=== PATIENT | female | born 1955 | race Caucasian/White ===

== ENCOUNTER 2017-06-24 15:01 | Emergency (ER) | payer OTHER, MEDICAID ==
[~2017-06-24] VITALS: Ht 162.6 cm; Wt 51.3 kg
[~2017-06-24 15:01] MED LIST: ATEN-60; CEFP200T15 PO; GLAT20KI IM; WARF5TAB71 PO
[2017-06-24 15:06] VITALS: BP 153/77
[2017-06-24] MEDS ORDERED: MORPHINE SULF INJ 2 MG/ML SYRINGE 1ML ONE (17:44)
[2017-06-24] MEDS ORDERED: ONDANSETRON ODT 4 MG TAB PO ONE (17:45)
[2017-06-24] MEDS ORDERED: MORPHINE SULFATE 4 MG/ML SYR/VIAL IM ONE (17:45)
== END 2017-06-24 19:06 | disposition home or self-care (01) ==
LOC: EDBD 15:01 → ER 15:10
DX: M25.551 Pain in right hip (principal); I10 Essential (primary) hypertension; F17.200 Nicotine dependence, unspecified, uncomplicated; Z79.01 Long term (current) use of anticoagulants; Z90.710 Acquired absence of both cervix and uterus
CPT/HCPCS: 73502; 96372; 99284; J2270; Q0162

== ENCOUNTER 2017-09-26 20:40 | Emergency (ER) | payer OTHER, MEDICAID ==
[~2017-09-26] VITALS: Ht 167.6 cm; Wt 64.4 kg
[2017-09-26] MEDS: ACETAMINOPHEN 325 MG TAB PO ONE ×2 (21:11→21:15)
[2017-09-26 21:54] LABS: Basophils # (auto) 0.1 uL; Basophils % (auto) 0.6 % (0.0-2.0); Eosinophils # (auto) 0.1 uL; Eosinophils % (auto) 0.7 % (0.0-7.0); Hematocrit 37.8 % (36.0-46.0); Hemoglobin 12.5 g/dL (12.2-16.2); Lymphocytes # (auto) 0.7 uL; Lymphocytes % (auto) 5.2 % (10.0-50.0); Mean Corpuscular Hemoglobin 28.2 pg (28.0-32.0); Mean Corpuscular Hgb Conc. 33.1 g/dL (32.0-36.0); Mean Corpuscular Volume 85.1 fL (80.0-100.0); Monocytes % (auto) 6.9 % (0.0-12.0); Neutrophils # (auto) 12.1 uL; Neutrophils % (auto) 86.6 % (37.0-80.0); Platelet Count (auto) 290 10^3/uL (140-450); Red Blood Cells 4.45 10^6/uL (4.0-5.20); Red Cell Distribution Width 15.1 % (11.8-14.3); White Blood Cell 13.9 10^3/uL (4.4-10.8)
[2017-09-26 22:20] LABS: Alanine Aminotransferase 17 U/L (13-56); Albumin 3.2 g/dL (3.4-5.0); Alkaline Phosphatase 101 U/L (45-117); Anion Gap 6 (5-15); Aspartate Aminotransferase 16 U/L (15-37); Bilirubin, Total 0.4 mg/dL (0.2-1.0); Blood Urea Nitrogen 15 mg/dL (7-18); Calcium 9.2 mg/dL (8.5-10.1); Carbon Dioxide 21 mmol/L (21-32); Chloride 113 mmol/L (98-107); GFR African American 84 mL/min; GFR Non-African American 69 mL/min; Glucose 111 mg/dL (74-106); Potassium 3.5 mmol/L (3.5-5.1); Sodium 140 mmol/L (136-145); Total Protein 7.3 g/dL (6.4-8.2)
[2017-09-26] MEDS: ONDANSETRON HCL 4 MG/2 ML VIAL IV ONE (23:36)
[2017-09-27 00:13] LABS: Urine Bacteria MANY /hpf (None Seen); Urine Blood 2+ /uL (Negative); Urine Hyaline Cast FEW /lpf (0 - 2); Urine Mucus FEW (None Seen); Urine Specific Gravity 1.016 (1.001-1.035); Urine WBC 486 /hpf (0 - 5); Urine WBC Clumps PRESENT /hpf (None Seen)
[2017-09-27] MEDS: MORPHINE SULFATE 4 MG/ML SYR/VIAL IV ONE (01:55)
[2017-09-27] MEDS: cefTRIAXone 1GM/10ml IVPUSH 10 ML IV ONE (01:55)
[2017-09-27] MEDS: ONDANSETRON HCL 4 MG/2 ML VIAL IV ONE (01:55)
[2017-09-27 06:04] VITALS: BP 119/66
== END 2017-09-27 05:28 | disposition home or self-care (01) ==
LOC: EDBD 20:40 → ER 20:43
DX: N13.2 Hydronephrosis with renal and ureteral calculous obstruction (principal); N13.9 Obstructive and reflux uropathy, unspecified; N39.0 Urinary tract infection, site not specified; I10 Essential (primary) hypertension; F17.210 Nicotine dependence, cigarettes, uncomplicated; Z79.01 Long term (current) use of anticoagulants; Z90.710 Acquired absence of both cervix and uterus; Z90.49 Acquired absence of other specified parts of digestive tract
CPT/HCPCS: 36415; 71045; 74176; 80053; 81001; 83605; 84484; 85025; 87040; 87086; 87088; 87186; 93005; 96374; 96375; 96376; 99285; J2270; J2405

== ENCOUNTER 2017-11-26 16:16 | Emergency (ER) | payer OTHER, MEDICAID ==
[~2017-11-26] VITALS: Ht 157.5 cm; Wt 59.0 kg
[2017-11-26 16:50] LABS: Hematocrit 41.3 % (36.0-46.0); Hemoglobin 13.5 g/dL (12.2-16.2); Mean Corpuscular Hemoglobin 27.9 pg (28.0-32.0); Mean Corpuscular Hgb Conc. 32.8 g/dL (32.0-36.0); Mean Corpuscular Volume 85.1 fL (80.0-100.0); Platelet Count (auto) 255 10^3/uL (140-450); Red Blood Cells 4.85 10^6/uL (4.0-5.20); Red Cell Distribution Width 17.5 % (11.8-14.3); White Blood Cell 9.1 10^3/uL (4.4-10.8)
[2017-11-26] MEDS ORDERED: KETOROLAC TROMETH 30 MG/ML 1ML VIAL IV ONE (17:00)
[2017-11-26] MEDS ORDERED: NITROGLYCERIN 0.4 MG SL TAB SL ONE (17:00)
[2017-11-26] MEDS ORDERED: ASPirin 81 mg TAB PO ONE (17:00)
[2017-11-26 17:01] LABS: Basophils % (manual) 0 (0.0-2.0); Blast Cells 0; Metamyelocytes % 0; Myelocytes % 0; Promyelocytes % 0; Reactive Lymphocytes 0
[2017-11-26 17:05] LABS: INR 0.9 (0.9-1.15); Partial Thromboplastin Time 25.6 sec (23.78-33.04); Prothrombin Time 9.7 sec (9.27-12.13)
[2017-11-26 17:11] LABS: Alanine Aminotransferase 17 U/L (13-56); Albumin 3.3 g/dL (3.4-5.0); Anion Gap 9 (5-15); Aspartate Aminotransferase 17 U/L (15-37); BUN/Creatinine Ratio 20.2; Blood Urea Nitrogen 19 mg/dL (7-18); Calcium 9.3 mg/dL (8.5-10.1); Carbon Dioxide 25 mmol/L (21-32); Chloride 112 mmol/L (98-107); GFR African American 78 mL/min; GFR Non-African American 64 mL/min; Glucose 96 mg/dL (74-106); Potassium 4.3 mmol/L (3.5-5.1); Sodium 146 mmol/L (136-145); Urine Bacteria FEW /hpf (None Seen); Urine Blood 1+ /uL (Negative); Urine Hyaline Cast FEW /lpf (0 - 2); Urine Mucus FEW (None Seen); Urine Specific Gravity 1.019 (1.001-1.035); Urine WBC 25 /hpf (0 - 5)
[2017-11-26 17:16] LABS: Alkaline Phosphatase 72 U/L (45-117); Bilirubin, Total 0.1 mg/dL (0.2-1.0); Total Protein 7.1 g/dL (6.4-8.2)
[2017-11-26] MEDS ORDERED: cefTRIAXone 1GM/10ml IVPUSH 10 ML IV ONE (17:30)
[2017-11-26] MEDS ORDERED: SODIUM CHLORIDE 0.9% 500 ML IV ONE (17:30)
[2017-11-26 17:43] LABS: Band Neutrophils % (manual) 1; Eosinophils % (manual) 17 (0-7); Lymphocytes % (manual) 29 (10.0-50.0); Monocytes % (manual) 9 (0-12)
[2017-11-26] MEDS ORDERED: methylPREDNISolone SOD SUCC 125 MG/2 ML VL IV ONE (19:30)
[2017-11-26 20:25] VITALS: BP 117/86
== END 2017-11-26 20:36 | disposition home or self-care (01) ==
LOC: EDBD 16:16 → ER 16:22
DX: R07.89 Other chest pain (principal); N39.0 Urinary tract infection, site not specified; I12.9 Hypertensive chronic kidney disease with stage 1 through stage 4 chronic kidney disease, or unspecified chronic kidney disease; G82.20 Paraplegia, unspecified; N18.9 Chronic kidney disease, unspecified; G35 Multiple sclerosis; Z90.710 Acquired absence of both cervix and uterus; Z88.6 Allergy status to analgesic agent; Z90.49 Acquired absence of other specified parts of digestive tract
CPT/HCPCS: 36415; 71045; 80053; 81001; 83605; 83880; 84484; 85007; 85027; 85610; 85730; 87040; 87077; 87086; 87186; 93005; 96361; 96374; 96375; 99285; J1885; J2930; J7040

== ENCOUNTER → 2019-09-18 | Emergency (ER) | payer OTHER, MEDICAID ==
[~2019-09-18] VITALS: Ht 162.6 cm; Wt 54.4 kg
[~2019-09-18] MED LIST changes: +MORPHINE SULF INJ 2 MG/ML SYRINGE 1ML IV ONE; +ONDANSETRON HCL 4 MG/2 ML VIAL IV ONE; +SODIUM CHLORIDE 0.9% 1,000 ML IVB ONE; +cefTRIAXone 1GM/50ML D5W 50 ML IV ONE
[2019-09-18 18:35] LABS: Urine Bacteria FEW /hpf (None Seen); Urine Blood 3+ /uL (Negative); Urine Specific Gravity 1.019 (1.001-1.035); Urine WBC 617 /hpf (0 - 5)
[2019-09-18 18:40] LABS: Basophils # (auto) 0 10 ^3/uL (0-0.2); Basophils % (auto) 0.4 % (0.0-2.0); Eosinophils # (auto) 0 10 ^3/uL (0-0.8); Eosinophils % (auto) 0.5 % (0.0-7.0); Hematocrit 36.6 % (36.0-46.0); Hemoglobin 11.9 g/dL (12.2-16.2); Lymphocytes # (auto) 2.2 10 ^3/uL (0.4-5.4); Lymphocytes % (auto) 30.2 % (10.0-50.0); Mean Corpuscular Hemoglobin 29.5 pg (28.0-32.0); Mean Corpuscular Hgb Conc. 32.5 g/dL (32.0-36.0); Mean Corpuscular Volume 90.8 fL (80.0-100.0); Monocytes # (auto) 0.5 10 ^3/uL (0-1.3); Neutrophils # (auto) 4.5 10 ^3/uL (1.6-8.6); Neutrophils % (auto) 61.9 % (37.0-80.0); Nucleated Red Blood Cells % 0.1 %; Platelet Count (auto) 176 10^3/uL (140-450); Red Blood Cells 4.03 10^6/uL (4.0-5.20); Red Cell Distribution Width 15.5 % (11.8-14.3); White Blood Cell 7.3 10^3/uL (4.4-10.8)
[2019-09-18 18:56] LABS: Albumin 2.1 g/dL (3.4-5.0); Calcium 9.2 mg/dL (8.5-10.1); Magnesium 1.9 mg/dL (1.6-2.6); Potassium 4.3 mmol/L (3.5-5.1)
[2019-09-18 18:57] LABS: INR 0.97 (0.9-1.15); Partial Thromboplastin Time 29.3 sec (23.64-32.05)
[2019-09-18 18:59] LABS: BUN/Creatinine Ratio 38.9; Bilirubin, Total 0.2 mg/dL (0.2-1.0); Total Protein 5.4 g/dL (6.4-8.2)
[2019-09-19 00:39] VITALS: BP 115/50
== END | disposition home or self-care (01) ==
LOC: EDUNIT# 16:19 → ER 16:24 → EDBD 16:24
DX: N39.0 Urinary tract infection, site not specified (principal); N20.0 Calculus of kidney; I12.9 Hypertensive chronic kidney disease with stage 1 through stage 4 chronic kidney disease, or unspecified chronic kidney disease; N18.9 Chronic kidney disease, unspecified; Z86.69 Personal history of other diseases of the nervous system and sense organs; Z46.6 Encounter for fitting and adjustment of urinary device; Z90.49 Acquired absence of other specified parts of digestive tract; Z90.710 Acquired absence of both cervix and uterus; Z88.5 Allergy status to narcotic agent; Z79.01 Long term (current) use of anticoagulants; Z79.899 Other long term (current) drug therapy
CPT/HCPCS: 36415; 71045; 74176; 80053; 81001; 83615; 83735; 85025; 85610; 85730; 96365; 96375; 99285; J0696; J2270; J2405